=== PATIENT | male | born 1975 | race Caucasian/White ===

== ENCOUNTER 2021-05-22 13:24 | Emergency (ER) | payer OTHER ==
[2021-05-22] MEDS ORDERED: LIDOCAINE HCL 1%, 10 MG/ML (50 mL VIAL) INF ONE (13:27)
[2021-05-22] MEDS ORDERED: DIPHTH,PERTUSS(ACELL),TET 0.5 ML DISP.SYRIN IM ONE ×2 (13:27→13:37)
[2021-05-22] MEDS ORDERED: CLINDAMYCIN HCL 150 MG CAPSULE (FP) PO ONE (13:28)
[2021-05-22] MEDS ORDERED: LIDOCAINE HCL 1%, 10 MG/ML (20ML VIAL) ONE (13:37)
[2021-05-22] MEDS ORDERED: CLINDAMYCIN HCL 150 MG CAPSULE (FP) ONE (13:37)
[2021-05-22 13:53] VITALS: BP 157/114; PULSE 95; TEMP 98.9; BMI 33.0
== END 2021-05-22 14:42 | disposition home or self-care (01) ==
LOC: FER 13:24
PROC: 0HQLXZZ Repair Left Lower Leg Skin, External Approach (ICD-10-PCS; principal; 2021-05-22)
PROC: 3E0234Z Introduction of Serum, Toxoid and Vaccine into Muscle, Percutaneous Approach (ICD-10-PCS; principal; 2021-05-22)
DX: S81.012A Laceration without foreign body, left knee, initial encounter (principal); W31.2XXA Contact with powered woodworking and forming machines, initial encounter
CPT/HCPCS: 90715; 99283-25

== ENCOUNTER 2021-06-04 07:38 | Emergency (ER) | payer OTHER ==
[2021-06-04 07:45] VITALS: PULSE 97; TEMP 98.3; BMI 33.0
[2021-06-04 07:49] VITALS: BP 160/114
== END 2021-06-04 07:56 | disposition home or self-care (01) ==
LOC: FER 07:38
DX: Z48.02 Encounter for removal of sutures (principal)
CPT/HCPCS: 99281-25